=== PATIENT | female | born 1945 | race African-American/Black ===

== ENCOUNTER 2019-09-03 11:57 | Inpatient (IN) | payer MEDICARE, MEDICAID ==
[~2019-09-03] VITALS: Ht 177.8 cm; Wt 137.4 kg
[2019-09-03] MEDS ORDERED: MAGNESIUM 2 G PREMIX 50 ML IV STA (12:14)
[2019-09-03] MEDS ORDERED: IPRATROPIUM BROMIDE (0.02%) 0.5MG/2.5ML NEB HHN STA (12:14)
[2019-09-03] MEDS ORDERED: ALBUTEROL (0.083%) 2.5MG/3ML NEB HHN STA (12:14)
[2019-09-03] MEDS ORDERED: METHYLPREDNISOLONE SOD SUCC 125 MG/2 ML VIAL IV STA (12:14)
[2019-09-03 12:37] LABS: BASOPHILS % 0.8 % (0.0-2.0); EOSINOPHILS % 0.2 % (0.0-5.0); HEMATOCRIT. 27.2 % (36.0-48.0); HEMOGLOBIN. 8.2 g/dL (12.0-16.0); LYMPHOCYTES % 24.9 % (20.0-50.0); MEAN CORPUSCULAR HEMOGLOBIN 20.8 pg (28.0-32.0); MEAN CORPUSCULAR VOLUME 68.8 fL (81.0-99.0); MONOCYTES % 12.3 % (2.0-8.0); NEUTROPHILS % 61.8 % (40.0-76.0); RED BLOOD CELL COUNT 3.95 mill/uL (4.2-5.4); RED CELL DISTRIBUTION WIDTH 29.9 % (11.6-14.6)
[2019-09-03 12:43] LABS: CHLORIDE 108 mEq/L (98-107)
[2019-09-03] MEDS ORDERED: PIPERACILLIN/TAZ 3.375G PREMIX 50 ML IV ONE (12:45)
[2019-09-03] MEDS ORDERED: LEVOFLOXACIN 500MG PREMIX 100 ML IV ONE (12:45)
[2019-09-03 12:52] LABS: INR 3.2; PROTHROMBIN TIME 30.8 sec (9.6-11.0)
[2019-09-03 13:01] LABS: PLATELET ESTIMATE DECREASED
[2019-09-03 13:02] LABS: MEAN PLATELET VOLUME 9.9 fl (7.4-10.4); PLATELET 74 x1000/uL (130-400)
[2019-09-03 13:24] LABS: CLARITY URINE CLOUDY (CLEAR); COLOR URINE ORANGE (YELLOW); KETONES URINE NEGATIVE (NEGATIVE); LEUKOCYTE ESTERASE URINE 1+ (NEGATIVE); NITRITE URINE POSITIVE (NEGATIVE); OCCULT BLOOD URINE 1+ (NEGATIVE); PROTEIN URINE 2+ (NEGATIVE); SPECIFIC GRAVITY URINE 1.028 (1.005-1.030)
[2019-09-03 13:28] LABS: BG BASE EXCESS -5.3 mmol/L (-2.0-2.0); BG BILEVEL POS AIRWAY PRESSURE 15/5; BG CARBOXYHEMOGLOBIN 1.1 % (0.5-1.5); BG DEOXYHEMOGLOBIN 0.5 % (0.0-5.0); BG FRACTION INSPIRED OXYGEN 50; BG HCO3 ACT 19.7 mmol/L (22.0-26.0); BG METHEMOGLOBIN 0.3 % (0.0-1.5); BG OXYGEN SATURATION 99.5 % (92.0-98.5); BG OXYHEMOGLOBIN 98.1 % (94.0-97.0); BG PCO2 36.3 mmHg (35.0-45.0); BG PH 7.353 (7.350-7.450); BG PO2 176.8 mmHg (75.0-100.0); BG SAMPLE SITE RIGHT RADIAL; BG TOTAL HEMOGLOBIN 8.3 g/dL (12.0-18.0); BG VENT MODE MASK - BIPAP; BG VENT RATE 14 set
[2019-09-03] MEDS ORDERED: FUROSEMIDE 20MG/2ML VIAL IVP ONE (13:45)
[2019-09-03] MEDS ORDERED: SODIUM CHLORIDE 0.9% 1,000 ML IV SCH (13:48)
[2019-09-03] MEDS ORDERED: PIPERACILLIN/TAZ 3.375G PREMIX 50 ML IV NR ×2 (19:57→21:56)
[2019-09-03] MEDS ORDERED: VANCOMYCIN 1500MG in DEXTROSE 5% WATER 250ML IV NR (19:59)
[2019-09-03] MEDS ORDERED: HEPARIN 5000 UNITS/ML VIAL SUBCUT SCH (21:00)
[2019-09-03] MEDS: ACETAMINOPHEN 325MG TABLET PO PRN (22:52)
[2019-09-03] MEDS ORDERED: ATORVASTATIN CALCIUM 40MG TABLET PO NR (23:30)
[2019-09-04] VITALS (9 sets, daily range): BP systolic 98–135; BP diastolic 54–75
[2019-09-04] MEDS ORDERED: PIPERACILLIN/TAZOBACTAM 3.375 G in DEXTROSE 5% WATER 50 ML IV SCH ×2
[2019-09-04] MEDS: PIPERACILLIN/TAZOBACTAM 3.375 G in DEXTROSE 5% WATER 50 ML IV SCH ×4 (01:13→17:59)
[2019-09-04 06:20] LABS: CHLORIDE 108 mEq/L (98-107)
[2019-09-04 06:26] LABS: BASOPHILS % 0.3 % (0.0-2.0); HEMATOCRIT. 24.2 % (36.0-48.0); HEMOGLOBIN. 7.3 g/dL (12.0-16.0); LYMPHOCYTES % 17.3 % (20.0-50.0); MEAN CORPUSCULAR HEMOGLOBIN 20.9 pg (28.0-32.0); MEAN CORPUSCULAR VOLUME 68.8 fL (81.0-99.0); MONOCYTES % 7.4 % (2.0-8.0); RED BLOOD CELL COUNT 3.52 mill/uL (4.2-5.4); RED CELL DISTRIBUTION WIDTH 30.3 % (11.6-14.6)
[2019-09-04] MEDS: ACETAMINOPHEN 325MG TABLET PO PRN (09:39)
[2019-09-04] MEDS: VANCOMYCIN 1250MG in DEXTROSE 5% WATER 250ML IV SCH (09:42)
[2019-09-04] MEDS ORDERED: VANCOMYCIN 1 G PREMIX 200 ML IV SCH (10:00)
[2019-09-04 10:06] LABS: MEAN PLATELET VOLUME 10.6 fl (7.4-10.4); PLATELET 67 x1000/uL (130-400)
[2019-09-04] MEDS: FUROSEMIDE 40MG/4ML VIAL IVP SCH (16:13)
[2019-09-04 17:04] LABS: TOTAL IRON BINDING CAPACITY 298 ug/dL (250-450)
[2019-09-04 17:30] LABS: FOLIC ACID (FOLATE) SERUM 5.6 ng/mL (>5.38)
[2019-09-05] VITALS (12 sets, daily range): BP systolic 93–122; BP diastolic 43–83
[2019-09-05] MEDS: VANCOMYCIN 1250MG in DEXTROSE 5% WATER 250ML IV SCH (04:00)
[2019-09-05] MEDS: PIPERACILLIN/TAZOBACTAM 3.375 G in DEXTROSE 5% WATER 50 ML IV SCH ×3 (05:43)
[2019-09-05 07:22] LABS: BASOPHILS % 0.1 % (0.0-2.0); HEMATOCRIT. 23.4 % (36.0-48.0); HEMOGLOBIN. 7.2 g/dL (12.0-16.0); MEAN CORPUSCULAR HEMOGLOBIN 21.1 pg (28.0-32.0); MEAN CORPUSCULAR VOLUME 68.3 fL (81.0-99.0); MEAN PLATELET VOLUME 10.6 fl (7.4-10.4); NEUTROPHILS % 71.9 % (40.0-76.0); PLATELET 55 x1000/uL (130-400); RED BLOOD CELL COUNT 3.43 mill/uL (4.2-5.4); RED CELL DISTRIBUTION WIDTH 30.2 % (11.6-14.6)
[2019-09-05 07:28] LABS: INR 2.8; PROTHROMBIN TIME 27.4 sec (9.6-11.0)
[2019-09-05 09:01] LABS: CHLORIDE 104 mEq/L (98-107)
[2019-09-05] MEDS: FUROSEMIDE 40MG/4ML VIAL IVP SCH (09:03)
[2019-09-05] MEDS: PIPERACILLIN/TAZOBACTAM 3.375 G in DEXT 5% WATER 100 ML IV SCH ×2 (12:46→17:39)
[2019-09-05 22:05] LABS: PLATELET ESTIMATE DECREASED
[2019-09-06] VITALS (12 sets, daily range): BP systolic 105–118; BP diastolic 50–78
[2019-09-06] MEDS: PIPERACILLIN/TAZOBACTAM 3.375 G in DEXT 5% WATER 100 ML IV SCH ×4 (00:50→17:43)
[2019-09-06] MEDS: ONDANSETRON HCL 4MG/2ML INJ IV PRN (06:12)
[2019-09-06 07:59] LABS: HEMATOCRIT. 23.3 % (36.0-48.0); HEMOGLOBIN. 7.1 g/dL (12.0-16.0); MEAN CORPUSCULAR HEMOGLOBIN 20.7 pg (28.0-32.0); MEAN CORPUSCULAR VOLUME 68.2 fL (81.0-99.0); MEAN PLATELET VOLUME 9.6 fl (7.4-10.4); RED BLOOD CELL COUNT 3.42 mill/uL (4.2-5.4); RED CELL DISTRIBUTION WIDTH 29.8 % (11.6-14.6)
[2019-09-06] MEDS: FUROSEMIDE 40MG/4ML VIAL IVP SCH (09:49)
[2019-09-06] MEDS: FERROUS SULFATE 325MG TABLET PO SCH ×2 (13:00→17:43)
[2019-09-06 19:28] LABS: PLATELET ESTIMATE MARKEDLY DECREASED
[2019-09-06 19:29] LABS: PLATELET 43 x1000/uL (130-400)
[2019-09-06] MEDS: CARVEDILOL 3.125 MG TABLET PO SCH (20:33)
[2019-09-07] VITALS (12 sets, daily range): BP systolic 95–127; BP diastolic 48–66
[2019-09-07] MEDS: PIPERACILLIN/TAZOBACTAM 3.375 G in DEXT 5% WATER 100 ML IV SCH ×4 (00:45→18:04)
[2019-09-07] MEDS: ACETAMINOPHEN 325MG TABLET PO PRN ×2 (00:58→22:20)
[2019-09-07] MEDS: ONDANSETRON HCL 4MG/2ML INJ IV PRN ×2 (05:47→12:35)
[2019-09-07 08:01] LABS: BASOPHILS % 0.2 % (0.0-2.0); EOSINOPHILS % 2.9 % (0.0-5.0); HEMATOCRIT. 23.3 % (36.0-48.0); LYMPHOCYTES % 30.6 % (20.0-50.0); MEAN CORPUSCULAR VOLUME 69.6 fL (81.0-99.0); MEAN PLATELET VOLUME 9.7 fl (7.4-10.4); MONOCYTES % 19.8 % (2.0-8.0); NEUTROPHILS % 46.5 % (40.0-76.0); RED BLOOD CELL COUNT 3.35 mill/uL (4.2-5.4); RED CELL DISTRIBUTION WIDTH 29.7 % (11.6-14.6)
[2019-09-07 08:12] LABS: INR 2.4; PROTHROMBIN TIME 23.4 sec (9.6-11.0)
[2019-09-07] MEDS: FUROSEMIDE 40MG/4ML VIAL IVP SCH (08:21)
[2019-09-07] MEDS: CARVEDILOL 3.125 MG TABLET PO SCH ×2 (08:21→20:36)
[2019-09-07] MEDS: FERROUS SULFATE 325MG TABLET PO SCH ×3 (08:21→18:04)
[2019-09-07 08:29] LABS: PLATELET 36 x1000/uL (130-400)
[2019-09-07] MEDS ORDERED: SENNOSIDES 8.6MG TABLET PO PRN (17:45)
[2019-09-07] MEDS ORDERED: MAGNESIUM HYDROXIDE 400MG/5ML 30ML UDC PO PRN (17:45)
[2019-09-08] VITALS (17 sets, daily range): BP systolic 86–132; BP diastolic 48–67
[2019-09-08] MEDS: PIPERACILLIN/TAZOBACTAM 3.375 G in DEXT 5% WATER 100 ML IV SCH ×4 (00:40→20:58)
[2019-09-08 06:08] LABS: MEAN CORPUSCULAR VOLUME 68.4 fL (81.0-99.0); MEAN PLATELET VOLUME 10.3 fl (7.4-10.4); RED BLOOD CELL COUNT 3.21 mill/uL (4.2-5.4); RED CELL DISTRIBUTION WIDTH 29.3 % (11.6-14.6)
[2019-09-08 06:44] LABS: CHLORIDE 103 mEq/L (98-107)
[2019-09-08 07:25] LABS: INR 2.4; PROTHROMBIN TIME 23.2 sec (9.6-11.0)
[2019-09-08 07:33] LABS: HEMOGLOBIN. 6.8 g/dL (12.0-16.0); PLATELET 38 x1000/uL (130-400)
[2019-09-08] MEDS: FERROUS SULFATE 325MG TABLET PO SCH ×3 (08:29→19:01)
[2019-09-08] MEDS: FUROSEMIDE 40MG/4ML VIAL IVP SCH (08:29)
[2019-09-08] MEDS: CARVEDILOL 3.125 MG TABLET PO SCH ×2 (08:30→21:08)
[2019-09-08 09:32] LABS: PLATELET ESTIMATE MARKEDLY DECREASED
[2019-09-08] MEDS ORDERED: FUROSEMIDE 20MG/2ML VIAL IVP NR (11:15)
[2019-09-08 13:55] LABS: HAPTOGLOBIN <31.0 mg/dL (30-200)
[2019-09-08 16:39] LABS: CREATINE KINASE 38 IU/L (26-192)
[2019-09-08] MEDS: DOCUSATE SODIUM 250MG CAPSULE PO SCH (21:08)
[2019-09-09] VITALS (13 sets, daily range): BP systolic 95–130; BP diastolic 44–80
[2019-09-09 00:17] LABS: HEMATOCRIT 26.8 % (36.0-48.0); HEMOGLOBIN 8.1 g/dL (12.0-16.0)
[2019-09-09] MEDS: PIPERACILLIN/TAZOBACTAM 3.375 G in DEXT 5% WATER 100 ML IV SCH ×2 (00:26→05:38)
[2019-09-09 06:52] LABS: INR 2.2; PROTHROMBIN TIME 21.6 sec (9.6-11.0)
[2019-09-09] MEDS: ACETAMINOPHEN 325MG TABLET PO PRN (07:02)
[2019-09-09 07:41] LABS: CHLORIDE 103 mEq/L (98-107)
[2019-09-09] MEDS: FERROUS SULFATE 325MG TABLET PO SCH ×3 (08:00→17:07)
[2019-09-09 08:13] LABS: HEMATOCRIT. 27.8 % (36.0-48.0); HEMOGLOBIN. 8.3 g/dL (12.0-16.0); MEAN CORPUSCULAR HEMOGLOBIN 21.5 pg (28.0-32.0); MEAN PLATELET VOLUME 10.2 fl (7.4-10.4); RED BLOOD CELL COUNT 3.86 mill/uL (4.2-5.4); RED CELL DISTRIBUTION WIDTH 28.6 % (11.6-14.6)
[2019-09-09] MEDS: FUROSEMIDE 40MG/4ML VIAL IVP SCH (08:22)
[2019-09-09] MEDS: CARVEDILOL 3.125 MG TABLET PO SCH (08:24)
[2019-09-09] MEDS: DOCUSATE SODIUM 250MG CAPSULE PO SCH (08:24)
[2019-09-09 08:39] LABS: PLATELET 47 x1000/uL (130-400)
[2019-09-09] MEDS ORDERED: POTASSIUM CHLORIDE 20MEQ TABLET SR PO SCH (12:45)
[2019-09-09 13:31] LABS: PLATELET ESTIMATE MARKEDLY DECREASED
[2019-09-09] MEDS ORDERED: FUROSEMIDE 40MG TABLET PO SCH (21:00)
[2019-09-10] MEDS ORDERED: FUROSEMIDE 40MG/4ML VIAL IVP SCH (09:00)
[2019-09-10 10:10] LABS: IMMUNOGLOBULIN A 630 mg/dL (64-422); IMMUNOGLOBULIN G 3951 mg/dL (700-1600); IMMUNOGLOBULIN M 91 mg/dL (26-217)
[2019-09-12 13:06] LABS: ANA IFA Negative (.)
== END 2019-09-09 22:50 | DRG 871 ==
LOC: ER 11:57 → 5EST 13:04 → EDBEDREQTM 13:09 → EDBEDREQ 13:09 → ENRESERV 20:20
PROVIDERS: ADMIT Internal Medicine; ATTEND Internal Medicine
PROC: 5A09357 Assistance with Respiratory Ventilation, Less than 24 Consecutive Hours, Continuous Positive Airway Pressure (ICD-10-PCS; principal; 2019-09-03)
PROC: 30233N1 Transfusion of Nonautologous Red Blood Cells into Peripheral Vein, Percutaneous Approach (ICD-10-PCS; 2019-09-08)
DX: A41.9 Sepsis, unspecified organism (principal); J96.01 Acute respiratory failure with hypoxia; I50.43 Acute on chronic combined systolic (congestive) and diastolic (congestive) heart failure; J18.9 Pneumonia, unspecified organism; R65.21 Severe sepsis with septic shock; I21.4 Non-ST elevation (NSTEMI) myocardial infarction; D65 Disseminated intravascular coagulation [defibrination syndrome]; D61.818 Other pancytopenia; E87.2 Acidosis; G82.20 Paraplegia, unspecified; I42.9 Cardiomyopathy, unspecified; Z68.41 Body mass index [BMI] 40.0-44.9, adult; N17.9 Acute kidney failure, unspecified; G47.33 Obstructive sleep apnea (adult) (pediatric); R79.1 Abnormal coagulation profile; D50.9 Iron deficiency anemia, unspecified; E03.9 Hypothyroidism, unspecified; E66.01 Morbid (severe) obesity due to excess calories; I11.0 Hypertensive heart disease with heart failure; I27.20 Pulmonary hypertension, unspecified; I34.0 Nonrheumatic mitral (valve) insufficiency; Z60.2 Problems related to living alone; K59.00 Constipation, unspecified; S51.012A Laceration without foreign body of left elbow, initial encounter; S51.011A Laceration without foreign body of right elbow, initial encounter; K80.20 Calculus of gallbladder without cholecystitis without obstruction; W18.39XA Other fall on same level, initial encounter; I25.2 Old myocardial infarction; Z79.01 Long term (current) use of anticoagulants; Z79.899 Other long term (current) drug therapy; Z90.710 Acquired absence of both cervix and uterus; Z87.891 Personal history of nicotine dependence; Y93.89 Activity, other specified; Y92.89 Other specified places as the place of occurrence of the external cause; Y99.8 Other external cause status
CPT/HCPCS: 36415; 36600; 71045; 76700; 80048; 80053; 80202; 81003; 82270; 82375; 82550; 82607; 82728; 82746; 82784; 82805; 83010; 83540; 83550; 83605; 83615; 83735; 83880; 84134; 84145; 84484; 85014; 85018; 85025; 85044; 86256; 86334; 86803; 86850; 86880; 86900; 86920; 93005; 93306; 93970; 94644; 94660; 96365; 96375; 97110; 97161; 97166; 99291; A6261; J1940; J1956; J2405; J2543; J2930; J3370; J3475; J7060; J7611; P9016

== ENCOUNTER 2019-09-09 23:10 | Inpatient (IN) | payer MEDICARE, MEDICAID ==
[~2019-09-09] VITALS: Ht 177.8 cm; Wt 137.4 kg
[2019-09-09 23:10] VITALS: BP 96/49
[2019-09-10] MEDS ORDERED: MAGNESIUM HYDROXIDE 400MG/5ML 30ML UDC PO PRN (00:30)
[2019-09-10] MEDS: ACETAMINOPHEN 325MG TABLET PO PRN ×2 (01:02→23:54)
[2019-09-10 07:56] VITALS: BP 104/46
[2019-09-10] MEDS: CARVEDILOL 3.125 MG TABLET PO SCH ×2 (09:00→21:45)
[2019-09-10] MEDS: FUROSEMIDE 40MG/4ML VIAL IVP SCH (09:05)
[2019-09-10] MEDS: DOCUSATE SODIUM 250MG CAPSULE PO SCH (09:05)
[2019-09-10] MEDS: POTASSIUM CHLORIDE 20MEQ TABLET SR PO SCH (09:05)
[2019-09-10] MEDS: FERROUS SULFATE 325MG TABLET PO SCH ×3 (09:05→17:15)
[2019-09-10 16:14] VITALS: BP 93/51
[2019-09-10 20:00] VITALS: BP 102/41
[2019-09-10 22:30] VITALS: BP 113/66
[2019-09-11 07:32] LABS: INR 2.1; PROTHROMBIN TIME 20.4 sec (9.6-11.0)
[2019-09-11 07:43] LABS: HEMATOCRIT. 27.7 % (36.0-48.0); HEMOGLOBIN. 8.2 g/dL (12.0-16.0); MEAN CORPUSCULAR HEMOGLOBIN 21.8 pg (28.0-32.0); MEAN CORPUSCULAR VOLUME 73.6 fL (81.0-99.0); MEAN PLATELET VOLUME 9.4 fl (7.4-10.4); RED BLOOD CELL COUNT 3.76 mill/uL (4.2-5.4); RED CELL DISTRIBUTION WIDTH 28.4 % (11.6-14.6)
[2019-09-11 07:55] LABS: PLATELET 46 x1000/uL (130-400)
[2019-09-11 07:58] VITALS: BP 108/46
[2019-09-11 08:28] LABS: CHLORIDE 103 mEq/L (98-107)
[2019-09-11] MEDS: POTASSIUM CHLORIDE 20MEQ TABLET SR PO SCH (08:34)
[2019-09-11] MEDS: DOCUSATE SODIUM 250MG CAPSULE PO SCH (08:34)
[2019-09-11] MEDS: FUROSEMIDE 40MG/4ML VIAL IVP SCH ×2 (08:34→16:16)
[2019-09-11] MEDS: FERROUS SULFATE 325MG TABLET PO SCH ×3 (08:34→16:16)
[2019-09-11] MEDS: CARVEDILOL 3.125 MG TABLET PO SCH ×2 (08:35→21:18)
[2019-09-11 09:52] LABS: PLATELET ESTIMATE MARKEDLY DECREASED
[2019-09-11] MEDS: SENNOSIDES 8.6MG TABLET PO PRN (11:25)
[2019-09-11 20:00] VITALS: BP 125/84
[2019-09-11 20:56] LABS: CLARITY URINE CLOUDY (CLEAR); COLOR URINE DARK YELLOW (YELLOW); KETONES URINE NEGATIVE (NEGATIVE); LEUKOCYTE ESTERASE URINE 3+ (NEGATIVE); NITRITE URINE NEGATIVE (NEGATIVE); OCCULT BLOOD URINE 1+ (NEGATIVE); PROTEIN URINE NEGATIVE (NEGATIVE); SPECIFIC GRAVITY URINE 1.011 (1.005-1.030)
[2019-09-12] MEDS: ACETAMINOPHEN 325MG TABLET PO PRN (00:59)
[2019-09-12 06:48] LABS: BASOPHILS % 0.8 % (0.0-2.0); EOSINOPHILS % 1.7 % (0.0-5.0); HEMATOCRIT. 25.9 % (36.0-48.0); HEMOGLOBIN. 7.9 g/dL (12.0-16.0); LYMPHOCYTES % 25.6 % (20.0-50.0); MEAN CORPUSCULAR HEMOGLOBIN 22.3 pg (28.0-32.0); MEAN CORPUSCULAR VOLUME 73.3 fL (81.0-99.0); MEAN PLATELET VOLUME 9.9 fl (7.4-10.4); MONOCYTES % 13.9 % (2.0-8.0); RED BLOOD CELL COUNT 3.54 mill/uL (4.2-5.4); RED CELL DISTRIBUTION WIDTH 28.3 % (11.6-14.6)
[2019-09-12] MEDS: FUROSEMIDE 40MG/4ML VIAL IVP SCH ×2 (06:53→16:56)
[2019-09-12 07:39] LABS: PLATELET 41 x1000/uL (130-400)
[2019-09-12 07:45] LABS: CHLORIDE 104 mEq/L (98-107)
[2019-09-12 07:52] LABS: PHOSPHORUS 2.3 mg/dL (2.5-4.9)
[2019-09-12 08:26] VITALS: BP 144/76
[2019-09-12] MEDS: FERROUS SULFATE 325MG TABLET PO SCH ×3 (09:16→16:56)
[2019-09-12] MEDS: POTASSIUM CHLORIDE 20MEQ TABLET SR PO SCH (09:16)
[2019-09-12] MEDS: CARVEDILOL 3.125 MG TABLET PO SCH ×2 (09:17→20:58)
[2019-09-12] MEDS: DOCUSATE SODIUM 250MG CAPSULE PO SCH (09:17)
[2019-09-12] MEDS ORDERED: POTASSIUM CHLORIDE 20MEQ/PACKET PO NR (13:15)
[2019-09-12] MEDS ORDERED: POTASSIUM-SODIUM PHOSPHATE POWDER PACKET PO NR (14:45)
[2019-09-12 20:00] VITALS: BP 102/49
[2019-09-12] MEDS: FLUTICASONE PROPIONATE 50MCG/SPRAY BOTTLE BOTHNSTRLS SCH (20:58)
[2019-09-13] MEDS: FUROSEMIDE 40MG/4ML VIAL IVP SCH ×2 (06:22→16:35)
[2019-09-13 07:35] LABS: BASOPHILS % 1.1 % (0.0-2.0); EOSINOPHILS % 1.9 % (0.0-5.0); HEMATOCRIT. 27.7 % (36.0-48.0); HEMOGLOBIN. 8.3 g/dL (12.0-16.0); LYMPHOCYTES % 23.4 % (20.0-50.0); MEAN CORPUSCULAR HEMOGLOBIN 22.6 pg (28.0-32.0); MEAN CORPUSCULAR VOLUME 75.1 fL (81.0-99.0); MEAN PLATELET VOLUME 10.7 fl (7.4-10.4); MONOCYTES % 12.4 % (2.0-8.0); NEUTROPHILS % 61.2 % (40.0-76.0); RED BLOOD CELL COUNT 3.69 mill/uL (4.2-5.4); RED CELL DISTRIBUTION WIDTH 28.7 % (11.6-14.6)
[2019-09-13 07:37] LABS: PROTHROMBIN TIME 19.7 sec (9.6-11.0)
[2019-09-13 07:50] VITALS: BP 106/41
[2019-09-13 08:02] LABS: CHLORIDE 104 mEq/L (98-107)
[2019-09-13 08:14] LABS: PLATELET 41 x1000/uL (130-400)
[2019-09-13] MEDS: FLUTICASONE PROPIONATE 50MCG/SPRAY BOTTLE BOTHNSTRLS SCH ×2 (08:40→20:36)
[2019-09-13] MEDS: FERROUS SULFATE 325MG TABLET PO SCH ×3 (08:40→16:35)
[2019-09-13] MEDS: DOCUSATE SODIUM 250MG CAPSULE PO SCH (08:40)
[2019-09-13] MEDS: POTASSIUM CHLORIDE 20MEQ TABLET SR PO SCH (08:40)
[2019-09-13] MEDS: CARVEDILOL 3.125 MG TABLET PO SCH ×2 (08:41→20:36)
[2019-09-13] MEDS: FLUCONAZOLE 100MG TABLET PO SCH (12:27)
[2019-09-13 20:00] VITALS: BP 101/68
[2019-09-13] MEDS: SENNOSIDES 8.6MG TABLET PO PRN (20:36)
[2019-09-14] MEDS: ACETAMINOPHEN 325MG TABLET PO PRN (02:42)
[2019-09-14] MEDS: FUROSEMIDE 40MG/4ML VIAL IVP SCH ×2 (06:32→16:25)
[2019-09-14 08:03] VITALS: BP 115/44
[2019-09-14] MEDS: POTASSIUM CHLORIDE 20MEQ TABLET SR PO SCH (08:44)
[2019-09-14] MEDS: DOCUSATE SODIUM 250MG CAPSULE PO SCH (08:44)
[2019-09-14] MEDS: CARVEDILOL 3.125 MG TABLET PO SCH ×2 (08:44→21:00)
[2019-09-14] MEDS: FLUCONAZOLE 100MG TABLET PO SCH (08:44)
[2019-09-14] MEDS: FERROUS SULFATE 325MG TABLET PO SCH ×3 (08:44→16:25)
[2019-09-14] MEDS: FLUTICASONE PROPIONATE 50MCG/SPRAY BOTTLE BOTHNSTRLS SCH ×2 (08:47→21:00)
[2019-09-14] MEDS ORDERED: GUAIFENESIN-DM 200MG-20MG/10ML UDC PO PRN (14:00)
[2019-09-14 20:00] VITALS: BP 105/50
[2019-09-14] MEDS: SENNOSIDES 8.6MG TABLET PO PRN (21:19)
[2019-09-15 06:10] VITALS: BP 113/63
[2019-09-15] MEDS: FUROSEMIDE 40MG/4ML VIAL IVP SCH ×2 (06:17→16:48)
[2019-09-15 07:48] LABS: EOSINOPHILS % 2.3 % (0.0-5.0); HEMATOCRIT. 27.6 % (36.0-48.0); HEMOGLOBIN. 8.3 g/dL (12.0-16.0); LYMPHOCYTES % 28.5 % (20.0-50.0); MEAN CORPUSCULAR HEMOGLOBIN 22.9 pg (28.0-32.0); MEAN CORPUSCULAR VOLUME 75.9 fL (81.0-99.0); MEAN PLATELET VOLUME 10.6 fl (7.4-10.4); MONOCYTES % 12.8 % (2.0-8.0); NEUTROPHILS % 55.4 % (40.0-76.0); RED BLOOD CELL COUNT 3.64 mill/uL (4.2-5.4); RED CELL DISTRIBUTION WIDTH 28.7 % (11.6-14.6)
[2019-09-15 07:52] LABS: PLATELET 36 x1000/uL (130-400)
[2019-09-15 07:53] LABS: CHLORIDE 107 mEq/L (98-107)
[2019-09-15 07:59] LABS: PHOSPHORUS 2.8 mg/dL (2.5-4.9)
[2019-09-15] MEDS: CARVEDILOL 3.125 MG TABLET PO SCH ×2 (09:00→20:53)
[2019-09-15] MEDS: FLUTICASONE PROPIONATE 50MCG/SPRAY BOTTLE BOTHNSTRLS SCH ×2 (09:39→21:00)
[2019-09-15] MEDS: FERROUS SULFATE 325MG TABLET PO SCH ×3 (09:40→16:48)
[2019-09-15] MEDS: POTASSIUM CHLORIDE 20MEQ TABLET SR PO SCH (09:40)
[2019-09-15] MEDS: DOCUSATE SODIUM 250MG CAPSULE PO SCH (09:40)
[2019-09-15] MEDS: FLUCONAZOLE 100MG TABLET PO SCH (09:40)
[2019-09-15 13:06] LABS: IMMUNOGLOBULIN A 557 mg/dL (64-422); IMMUNOGLOBULIN G 3239 mg/dL (700-1600); IMMUNOGLOBULIN M 80 mg/dL (26-217)
[2019-09-15] MEDS: THROAT LOZENGES-BENZOCAINE/MENTH/CETYLPYRD CL LOZENGES MM PRN (16:52)
[2019-09-15 17:14] LABS: INR 1.9; PROTHROMBIN TIME 19.5 sec (9.6-11.0)
[2019-09-15 20:00] VITALS: BP 123/68
[2019-09-15] MEDS: ACETAMINOPHEN 325MG TABLET PO PRN (20:55)
[2019-09-16] MEDS: THROAT LOZENGES-BENZOCAINE/MENTH/CETYLPYRD CL LOZENGES MM PRN (04:36)
[2019-09-16] MEDS: FUROSEMIDE 40MG/4ML VIAL IVP SCH ×2 (07:20→16:52)
[2019-09-16 08:03] VITALS: BP 101/56
[2019-09-16] MEDS: CARVEDILOL 3.125 MG TABLET PO SCH ×2 (09:00→21:00)
[2019-09-16] MEDS: POTASSIUM CHLORIDE 20MEQ TABLET SR PO SCH (10:04)
[2019-09-16] MEDS: FLUCONAZOLE 100MG TABLET PO SCH (10:04)
[2019-09-16] MEDS: FERROUS SULFATE 325MG TABLET PO SCH ×3 (10:06→16:52)
[2019-09-16] MEDS: DOCUSATE SODIUM 250MG CAPSULE PO SCH (10:06)
[2019-09-16 15:06] LABS: ANTI-NUCLEAR ANTIBODIES DIRECT Negative (Negative)
[2019-09-16] MEDS: ACETAMINOPHEN 325MG TABLET PO PRN (16:52)
[2019-09-16 20:00] VITALS: BP 105/53
[2019-09-17] MEDS: FUROSEMIDE 40MG/4ML VIAL IVP SCH ×2 (06:11→16:51)
[2019-09-17 07:51] VITALS: BP 166/49
[2019-09-17] MEDS: CARVEDILOL 3.125 MG TABLET PO SCH ×2 (08:11→21:00)
[2019-09-17] MEDS: POTASSIUM CHLORIDE 20MEQ TABLET SR PO SCH (08:12)
[2019-09-17] MEDS: FLUCONAZOLE 100MG TABLET PO SCH (08:12)
[2019-09-17] MEDS: DOCUSATE SODIUM 250MG CAPSULE PO SCH (08:12)
[2019-09-17] MEDS: FERROUS SULFATE 325MG TABLET PO SCH ×3 (08:12→16:51)
[2019-09-17 12:58] LABS: HEMATOCRIT 31.1 % (36.0-48.0); HEMOGLOBIN 9.3 g/dL (12.0-16.0); MEAN CORPUSCULAR HEMOGLOBIN 23.2 pg (28.0-32.0); MEAN CORPUSCULAR VOLUME 77.5 fL (81.0-99.0); RED BLOOD CELL COUNT 4.01 mill/uL (4.2-5.4); RED CELL DISTRIBUTION WIDTH 31.3 % (11.6-14.6)
[2019-09-17 12:59] LABS: CHLORIDE 105 mEq/L (98-107)
[2019-09-17 13:02] LABS: INR 1.8; PROTHROMBIN TIME 17.9 sec (9.6-11.0)
[2019-09-17 13:51] LABS: PLATELET 50 x1000/uL (130-400)
[2019-09-17 14:13] VITALS: BP 108/52
[2019-09-17 20:00] VITALS: BP 102/50
[2019-09-17] MEDS: ACETAMINOPHEN 325MG TABLET PO PRN (21:35)
[2019-09-18 04:08] LABS: 25-HYDROXY VITAMIN D3 4.5 ng/mL (.)
[2019-09-18] MEDS: FUROSEMIDE 40MG/4ML VIAL IVP SCH ×2 (06:28→17:34)
[2019-09-18 07:43] LABS: T4 FREE 1.28 ng/dL (0.76-1.46)
[2019-09-18 08:00] VITALS: BP 100/47
[2019-09-18] MEDS: POTASSIUM CHLORIDE 20MEQ TABLET SR PO SCH (08:42)
[2019-09-18] MEDS: FLUCONAZOLE 100MG TABLET PO SCH (08:42)
[2019-09-18] MEDS: FERROUS SULFATE 325MG TABLET PO SCH ×3 (08:42→17:35)
[2019-09-18] MEDS: CARVEDILOL 3.125 MG TABLET PO SCH ×2 (08:42→21:00)
[2019-09-18] MEDS: DOCUSATE SODIUM 250MG CAPSULE PO SCH (08:42)
[2019-09-18] MEDS ORDERED: NON FORMULARY PATIENT HOME MED XX SCH (13:45)
[2019-09-18] MEDS ORDERED: LIDOCAINE 5% PATCH TOP SCH (14:00)
[2019-09-18 14:49] VITALS: BP 104/43
[2019-09-18] MEDS: ACETAMINOPHEN 325MG TABLET PO PRN (14:54)
[2019-09-18 20:00] VITALS: BP 112/57
[2019-09-19] MEDS: ONDANSETRON HCL 4MG TABLET PO PRN ×2 (03:24→13:42)
[2019-09-19] MEDS: FUROSEMIDE 40MG/4ML VIAL IVP SCH ×2 (06:26→17:29)
[2019-09-19 07:28] LABS: BASOPHILS % 1.8 % (0.0-2.0); EOSINOPHILS % 3.3 % (0.0-5.0); HEMATOCRIT. 25.7 % (36.0-48.0); LYMPHOCYTES % 39.3 % (20.0-50.0); MEAN CORPUSCULAR HEMOGLOBIN 24.3 pg (28.0-32.0); MEAN CORPUSCULAR VOLUME 77.9 fL (81.0-99.0); MEAN PLATELET VOLUME 9.8 fl (7.4-10.4); MONOCYTES % 14.6 % (2.0-8.0); RED CELL DISTRIBUTION WIDTH 35.2 % (11.6-14.6)
[2019-09-19 08:00] VITALS: BP 100/47
[2019-09-19] MEDS: CARVEDILOL 3.125 MG TABLET PO SCH ×2 (09:00→21:00)
[2019-09-19] MEDS ORDERED: LIDOCAINE 5% PATCH TOP SCH (09:00)
[2019-09-19] MEDS: DOCUSATE SODIUM 250MG CAPSULE PO SCH (09:50)
[2019-09-19] MEDS: FLUCONAZOLE 100MG TABLET PO SCH (09:51)
[2019-09-19] MEDS: POTASSIUM CHLORIDE 20MEQ TABLET SR PO SCH (09:53)
[2019-09-19] MEDS: FERROUS SULFATE 325MG TABLET PO SCH ×3 (09:53→17:29)
[2019-09-19 12:10] LABS: PLATELET 42 x1000/uL (130-400)
[2019-09-19] MEDS: ERGOCALCIFEROL 50000UNITS CAPSULE PO SCH (15:25)
[2019-09-19] MEDS: ACETAMINOPHEN 325MG TABLET PO PRN (15:27)
[2019-09-19] MEDS ORDERED: PHYTONADIONE 10 MG/10 ML ORALSYR PO SCH (16:00)
[2019-09-19] MEDS: LIDOCAINE 5% PATCH TOP SCH (16:04)
[2019-09-19 18:12] LABS: VITAMIN B12 SERUM 1290 pg/mL (211-911)
[2019-09-19 20:00] VITALS: BP 103/50
[2019-09-20] MEDS: ACETAMINOPHEN 325MG TABLET PO PRN ×2 (01:10→22:13)
[2019-09-20] MEDS: FUROSEMIDE 40MG/4ML VIAL IVP SCH ×2 (06:55→17:47)
[2019-09-20 08:00] VITALS: BP 115/56
[2019-09-20] MEDS: METOLAZONE 2.5MG TABLET PO SCH (09:03)
[2019-09-20] MEDS: DOCUSATE SODIUM 250MG CAPSULE PO SCH (09:03)
[2019-09-20] MEDS: FLUCONAZOLE 100MG TABLET PO SCH (09:04)
[2019-09-20] MEDS: CARVEDILOL 3.125 MG TABLET PO SCH ×2 (09:04→20:46)
[2019-09-20] MEDS: FERROUS SULFATE 325MG TABLET PO SCH ×3 (09:04→17:47)
[2019-09-20] MEDS: LIDOCAINE 5% PATCH TOP SCH (09:05)
[2019-09-20] MEDS: POTASSIUM CHLORIDE 20MEQ TABLET SR PO SCH (09:05)
[2019-09-20 20:44] VITALS: BP 106/55
[2019-09-21] MEDS: FUROSEMIDE 40MG/4ML VIAL IVP SCH ×2 (06:16→16:43)
[2019-09-21 07:57] VITALS: BP 101/47
[2019-09-21] MEDS: FERROUS SULFATE 325MG TABLET PO SCH ×3 (08:29→16:43)
[2019-09-21] MEDS: DOCUSATE SODIUM 250MG CAPSULE PO SCH (08:29)
[2019-09-21] MEDS: CARVEDILOL 3.125 MG TABLET PO SCH ×2 (08:29→20:29)
[2019-09-21] MEDS: POTASSIUM CHLORIDE 20MEQ TABLET SR PO SCH (08:29)
[2019-09-21] MEDS: LIDOCAINE 5% PATCH TOP SCH (08:29)
[2019-09-21] MEDS: METOLAZONE 2.5MG TABLET PO SCH (08:29)
[2019-09-21 16:50] VITALS: BP 108/46
[2019-09-21 20:00] VITALS: BP 109/57
[2019-09-21] MEDS: TRAMADOL 50MG TABLET PO PRN (21:29)
[2019-09-21] MEDS: ACETAMINOPHEN 325MG TABLET PO PRN (23:42)
[2019-09-22] MEDS: FUROSEMIDE 40MG/4ML VIAL IVP SCH (06:39)
[2019-09-22] MEDS: TRAMADOL 50MG TABLET PO PRN (07:02)
[2019-09-22 07:19] LABS: HEMATOCRIT. 26.6 % (36.0-48.0); HEMOGLOBIN. 8.3 g/dL (12.0-16.0); MEAN CORPUSCULAR VOLUME 80.1 fL (81.0-99.0); MEAN PLATELET VOLUME 10.6 fl (7.4-10.4); PLATELET 61 x1000/uL (130-400); RED BLOOD CELL COUNT 3.33 mill/uL (4.2-5.4); RED CELL DISTRIBUTION WIDTH 36.4 % (11.6-14.6)
[2019-09-22 07:45] VITALS: BP 101/47
[2019-09-22] MEDS: FERROUS SULFATE 325MG TABLET PO SCH ×2 (08:36→12:24)
[2019-09-22] MEDS: DOCUSATE SODIUM 250MG CAPSULE PO SCH (08:36)
[2019-09-22] MEDS: ERGOCALCIFEROL 50000UNITS CAPSULE PO SCH (08:36)
[2019-09-22] MEDS: CARVEDILOL 3.125 MG TABLET PO SCH (08:37)
[2019-09-22] MEDS: METOLAZONE 2.5MG TABLET PO SCH (08:44)
[2019-09-22] MEDS: POTASSIUM CHLORIDE 20MEQ TABLET SR PO SCH (08:44)
[2019-09-22] MEDS: LIDOCAINE 5% PATCH TOP SCH (08:47)
[2019-09-22] MEDS ORDERED: LIDO700A30 TOP (12:10)
[2019-09-22] MEDS ORDERED: MOM PO (12:10)
[2019-09-22] MEDS ORDERED: SENN-170 PO (12:10)
[2019-09-22] MEDS ORDERED: DOCU250C14 PO (12:10)
[2019-09-22] MEDS ORDERED: TOPUD PO (12:10)
[2019-09-22] MEDS ORDERED: COR3 PO (12:10)
[2019-09-22] MEDS ORDERED: POTA20TA82 PO (12:10)
[2019-09-22] MEDS ORDERED: FERR325T23 PO (12:10)
[2019-09-22] MEDS: ACETAMINOPHEN 325MG TABLET PO PRN ×2 (12:28→15:52)
[2019-09-22] MEDS ORDERED: FURO-151 MT (12:46)
[2019-09-22] MEDS ORDERED: METO2.5T14 PO (13:56)
[2019-09-22 14:40] LABS: CHLORIDE 101 mEq/L (98-107)
[2019-09-22] MEDS ORDERED: POTASSIUM CHLORIDE 20MEQ TABLET SR PO SCH (15:30)
[2019-09-22 15:48] VITALS: BP 112/62
[2019-09-22 15:50] VITALS: BP 18/112
[2019-09-22 18:45] LABS: PLATELET ESTIMATE DECREASED
[2019-09-25 07:48] LABS: BETA CAROTENE 4 ug/dL (3-91)
== END 2019-09-22 18:55 | disposition home or self-care (01) | DRG 280 ==
PROVIDERS: ADMIT Physical Medicine & Rehabilitation Spinal Cord Injury Medicine; ATTEND Internal Medicine
DX: I11.0 Hypertensive heart disease with heart failure (principal); J96.01 Acute respiratory failure with hypoxia; I21.4 Non-ST elevation (NSTEMI) myocardial infarction; A41.9 Sepsis, unspecified organism; J18.9 Pneumonia, unspecified organism; D61.818 Other pancytopenia; Z68.41 Body mass index [BMI] 40.0-44.9, adult; G82.20 Paraplegia, unspecified; N17.9 Acute kidney failure, unspecified; E66.01 Morbid (severe) obesity due to excess calories; F09 Unspecified mental disorder due to known physiological condition; F39 Unspecified mood [affective] disorder; G47.33 Obstructive sleep apnea (adult) (pediatric); I27.20 Pulmonary hypertension, unspecified; I34.0 Nonrheumatic mitral (valve) insufficiency; I42.9 Cardiomyopathy, unspecified; I50.23 Acute on chronic systolic (congestive) heart failure; K59.00 Constipation, unspecified; K80.20 Calculus of gallbladder without cholecystitis without obstruction; I25.2 Old myocardial infarction; Z79.899 Other long term (current) drug therapy; Z90.710 Acquired absence of both cervix and uterus
CPT/HCPCS: 36415; 72128; 72131; 76536; 80048; 80053; 81003; 82306; 82380; 82607; 82784; 83036; 83735; 84100; 84134; 84207; 84425; 84439; 84443; 84481; 85025; 85027; 86038; 86334; 86376; 87106; 93970; 97110; 97116; 97162; 97166; 97530; 97535; A6261; C1893; J1940; J3430; Q0162

== ENCOUNTER 2019-11-17 15:37 | Inpatient (IN) | payer MEDICARE, MEDICAID ==
[~2019-11-17] VITALS: Ht 172.7 cm; Wt 142.0 kg
[~2019-11-17 15:37] MED LIST: COR3 PO; DOCU250C14 PO; FERR325T23 PO; FURO-151 MT; LIDO700A30 TOP; METO2.5T14 PO; MOM PO; POTA20TA82 PO; SENN-170 PO; TOPUD PO
[2019-11-17 16:50] LABS: HEMATOCRIT. 38.1 % (36.0-48.0); HEMOGLOBIN. 12.5 g/dL (12.0-16.0); MEAN CORPUSCULAR HEMOGLOBIN 31.5 pg (28.0-32.0); MEAN CORPUSCULAR VOLUME 95.8 fL (81.0-99.0); MEAN PLATELET VOLUME 9.2 fl (7.4-10.4); PLATELET 75 x1000/uL (130-400); RED BLOOD CELL COUNT 3.97 mill/uL (4.2-5.4); RED CELL DISTRIBUTION WIDTH 21.3 % (11.6-14.6)
[2019-11-17 16:51] LABS: CHLORIDE 109 mEq/L (98-107)
[2019-11-17] MEDS ORDERED: FUROSEMIDE 40MG/4ML VIAL IVP ONE (17:15)
[2019-11-17 17:16] LABS: PLATELET ESTIMATE DECREASED
[2019-11-17] MEDS ORDERED: ONDANSETRON HCL 4MG/2ML INJ IV PRN (18:30)
[2019-11-17] MEDS ORDERED: HYDRALAZINE 20MG/ML VIAL IV PRN (18:30)
[2019-11-17] MEDS: ACETAMINOPHEN 325MG TABLET PO PRN (19:01)
[2019-11-17] MEDS ORDERED: HEPARIN 5000 UNITS/ML VIAL SUBCUT SCH (21:00)
[2019-11-17 22:00] VITALS: BP 147/78
[2019-11-18] VITALS: BP 143/79
[2019-11-18 04:00] VITALS: BP 103/47
[2019-11-18] MEDS: ACETAMINOPHEN 325MG TABLET PO PRN ×2 (04:55→17:33)
[2019-11-18 08:00] VITALS: BP 115/46
[2019-11-18 08:40] LABS: HEMATOCRIT. 35.7 % (36.0-48.0); HEMOGLOBIN. 11.9 g/dL (12.0-16.0); MEAN CORPUSCULAR HEMOGLOBIN 31.6 pg (28.0-32.0); MEAN CORPUSCULAR VOLUME 95.3 fL (81.0-99.0); MEAN PLATELET VOLUME 9.1 fl (7.4-10.4); PLATELET 70 x1000/uL (130-400); RED BLOOD CELL COUNT 3.75 mill/uL (4.2-5.4); RED CELL DISTRIBUTION WIDTH 20.4 % (11.6-14.6)
[2019-11-18 08:54] LABS: CHLORIDE 111 mEq/L (98-107)
[2019-11-18] MEDS: FUROSEMIDE 40MG/4ML VIAL IV SCH ×2 (09:24→17:31)
[2019-11-18] MEDS: METOLAZONE 2.5MG TABLET PO SCH (09:25)
[2019-11-18] MEDS ORDERED: DOCUSATE SODIUM 100MG CAPSULE PO PRN (11:45)
[2019-11-18] MEDS ORDERED: SENNOSIDES/DOCUSATE SOD 8.6/50MG TABLET PO PRN (11:45)
[2019-11-18] MEDS ORDERED: MAGNESIUM HYDROXIDE 400MG/5ML 30ML UDC PO PRN (11:45)
[2019-11-18 12:00] VITALS: BP 120/57
[2019-11-18 13:38] LABS: PLATELET ESTIMATE DECREASED
[2019-11-18 16:00] VITALS: BP 110/51
[2019-11-18 20:00] VITALS: BP 124/64
[2019-11-19 00:22] VITALS: BP 116/55
[2019-11-19] MEDS: ACETAMINOPHEN 325MG TABLET PO PRN ×4 (00:32→21:52)
[2019-11-19 05:37] LABS: HEMATOCRIT. 35.1 % (36.0-48.0); HEMOGLOBIN. 11.6 g/dL (12.0-16.0); MEAN CORPUSCULAR HEMOGLOBIN 31.7 pg (28.0-32.0); MEAN CORPUSCULAR VOLUME 95.6 fL (81.0-99.0); MEAN PLATELET VOLUME 9.2 fl (7.4-10.4); PLATELET 72 x1000/uL (130-400); RED BLOOD CELL COUNT 3.67 mill/uL (4.2-5.4); RED CELL DISTRIBUTION WIDTH 19.7 % (11.6-14.6)
[2019-11-19 05:43] LABS: CHLORIDE 108 mEq/L (98-107)
[2019-11-19 08:00] VITALS: BP 111/57
[2019-11-19] MEDS ORDERED: POTASSIUM CHLORIDE 20MEQ TABLET SR PO NR (09:15)
[2019-11-19] MEDS: FUROSEMIDE 40MG/4ML VIAL IV SCH ×2 (09:24→16:50)
[2019-11-19] MEDS: METOLAZONE 2.5MG TABLET PO SCH (09:25)
[2019-11-19 12:00] VITALS: BP 113/56
[2019-11-19 16:00] VITALS: BP 127/65
[2019-11-19 17:09] LABS: PLATELET ESTIMATE DECREASED
[2019-11-19 20:00] VITALS: BP 105/55
[2019-11-20] VITALS: BP 110/56
[2019-11-20] MEDS: TRAMADOL 50MG TABLET PO PRN ×2 (01:06→07:48)
[2019-11-20 04:00] VITALS: BP 103/47
[2019-11-20 06:35] LABS: HEMOGLOBIN. 12.1 g/dL (12.0-16.0); MEAN CORPUSCULAR VOLUME 95.2 fL (81.0-99.0); MEAN PLATELET VOLUME 9.4 fl (7.4-10.4); PLATELET 69 x1000/uL (130-400); RED BLOOD CELL COUNT 3.78 mill/uL (4.2-5.4)
[2019-11-20 06:37] LABS: CHLORIDE 105 mEq/L (98-107)
[2019-11-20 08:06] VITALS: BP 107/52
[2019-11-20] MEDS: ACETAMINOPHEN 325MG TABLET PO PRN (08:50)
[2019-11-20] MEDS ORDERED: ERGOCALCIFEROL 50000UNITS CAPSULE PO SCH (09:00)
[2019-11-20] MEDS: METOLAZONE 2.5MG TABLET PO SCH (09:54)
[2019-11-20] MEDS: POTASSIUM CHLORIDE 20MEQ/PACKET PO SCH (09:55)
[2019-11-20] MEDS: LIDOCAINE 5% PATCH TOP SCH (09:55)
[2019-11-20] MEDS: FUROSEMIDE 40MG/4ML VIAL IV SCH ×2 (09:55→16:32)
[2019-11-20 12:00] VITALS: BP 118/55
[2019-11-20] MEDS ORDERED: CARVEDILOL 3.125 MG TABLET PO NR (12:00)
[2019-11-20 12:01] LABS: PLATELET ESTIMATE DECREASED
[2019-11-20] MEDS ORDERED: POTASSIUM CHLORIDE 20MEQ/PACKET PO NR (12:15)
[2019-11-20 16:00] VITALS: BP 123/59
[2019-11-20] MEDS: SPIRONOLACTONE 25MG TABLET PO SCH (16:32)
[2019-11-20 20:00] VITALS: BP 105/57
[2019-11-20] MEDS: CARVEDILOL 3.125 MG TABLET PO SCH (21:00)
[2019-11-21] VITALS: BP 99/51
[2019-11-21] MEDS: ACETAMINOPHEN 325MG TABLET PO PRN (01:47)
[2019-11-21 04:00] VITALS: BP 106/57
[2019-11-21 06:32] LABS: HEMATOCRIT. 36.6 % (36.0-48.0); HEMOGLOBIN. 12.1 g/dL (12.0-16.0); MEAN CORPUSCULAR HEMOGLOBIN 31.6 pg (28.0-32.0); MEAN CORPUSCULAR VOLUME 95.9 fL (81.0-99.0); MEAN PLATELET VOLUME 9.2 fl (7.4-10.4); PLATELET 78 x1000/uL (130-400); RED BLOOD CELL COUNT 3.82 mill/uL (4.2-5.4); RED CELL DISTRIBUTION WIDTH 18.8 % (11.6-14.6)
[2019-11-21 07:22] LABS: CHLORIDE 101 mEq/L (98-107)
[2019-11-21] MEDS: LIDOCAINE 5% PATCH TOP SCH (08:11)
[2019-11-21] MEDS: FUROSEMIDE 40MG/4ML VIAL IV SCH (08:12)
[2019-11-21] MEDS: POTASSIUM CHLORIDE 20MEQ/PACKET PO SCH (08:12)
[2019-11-21] MEDS: SPIRONOLACTONE 25MG TABLET PO SCH (08:14)
[2019-11-21] MEDS: CARVEDILOL 3.125 MG TABLET PO SCH (08:14)
[2019-11-21 08:23] VITALS: BP 107/48
[2019-11-21] MEDS ORDERED: POTASSIUM CHLORIDE 20MEQ/PACKET PO NR (10:30)
[2019-11-21 11:21] LABS: PLATELET ESTIMATE DECREASED
[2019-11-21 12:00] VITALS: BP 111/85
[2019-11-21] MEDS ORDERED: TORS20TA4 MT (12:02)
[2019-11-21] MEDS ORDERED: SPIR25TA PO (12:02)
[2019-11-21 14:08] VITALS: BP 111/85
[2019-11-21 16:00] VITALS: BP 111/66
[2019-11-21] MEDS ORDERED: BUMETANIDE 1MG TABLET PO SCH (16:00)
[2019-11-24 06:08] LABS: 25-HYDROXY VITAMIN D3 6.6 ng/mL (.)
== END 2019-11-21 17:08 | DRG 291 ==
LOC: ER 15:37 → 7WST 18:20 → EDBEDREQTM 18:24 → EDBEDREQ 18:24 → ENRESERV 20:38
PROVIDERS: ADMIT Family Medicine Adult Medicine; ATTEND Family Medicine Adult Medicine
DX: I13.0 Hypertensive heart and chronic kidney disease with heart failure and stage 1 through stage 4 chronic kidney disease, or unspecified chronic kidney disease (principal); I50.23 Acute on chronic systolic (congestive) heart failure; G82.20 Paraplegia, unspecified; D61.818 Other pancytopenia; Z68.42 Body mass index [BMI] 45.0-49.9, adult; I87.2 Venous insufficiency (chronic) (peripheral); E87.6 Hypokalemia; E55.9 Vitamin D deficiency, unspecified; N18.9 Chronic kidney disease, unspecified; M48.061 Spinal stenosis, lumbar region without neurogenic claudication; M48.02 Spinal stenosis, cervical region; I25.5 Ischemic cardiomyopathy; I27.20 Pulmonary hypertension, unspecified; I34.0 Nonrheumatic mitral (valve) insufficiency; M79.604 Pain in right leg; M79.605 Pain in left leg; K80.20 Calculus of gallbladder without cholecystitis without obstruction; E07.89 Other specified disorders of thyroid; I25.10 Atherosclerotic heart disease of native coronary artery without angina pectoris; E66.01 Morbid (severe) obesity due to excess calories; J44.9 Chronic obstructive pulmonary disease, unspecified; E78.5 Hyperlipidemia, unspecified; I25.2 Old myocardial infarction; Z90.710 Acquired absence of both cervix and uterus; Z88.6 Allergy status to analgesic agent
CPT/HCPCS: 36415; 71045; 80053; 82306; 83735; 83880; 84484; 85025; 93005; 93306; 93970; 96374; 97110; 97116; 97162; 97166; 97530; 97535; 99285; J1940

== ENCOUNTER 2020-06-30 20:55 | Inpatient (IN) | payer MEDICARE, MEDICAID ==
[~2020-06-30] VITALS: Ht 165.1 cm; Wt 84.8 kg
[~2020-06-30 20:55] MED LIST changes: -FURO-151 MT; -METO2.5T14 PO; +SPIR25TA PO; +TORS20TA4 MT
[2020-06-30] MEDS ORDERED: ONDANSETRON HCL 4MG/2ML INJ IV STA (21:09)
[2020-06-30] MEDS ORDERED: SODIUM CHLORIDE 0.9% 1,000 ML IV ONE (21:15)
[2020-06-30] MEDS ORDERED: HALOPERIDOL LACTATE 5MG/ML VIAL IM ONE (22:00)
[2020-06-30 22:06] LABS: BASOPHILS % 0.3 % (0.0-2.0); EOSINOPHILS % 0.2 % (0.0-5.0); HEMATOCRIT. 39.6 % (36.0-48.0); HEMOGLOBIN. 12.9 g/dL (12.0-16.0); LYMPHOCYTES % 17.8 % (20.0-50.0); MEAN CORPUSCULAR HEMOGLOBIN 28.4 pg (28.0-32.0); MEAN CORPUSCULAR VOLUME 87.1 fL (81.0-99.0); MEAN PLATELET VOLUME 9.4 fl (7.4-10.4); MONOCYTES % 11.9 % (2.0-8.0); NEUTROPHILS % 69.8 % (40.0-76.0); PLATELET 93 x1000/uL (130-400); RED BLOOD CELL COUNT 4.55 mill/uL (4.2-5.4); RED CELL DISTRIBUTION WIDTH 17.8 % (11.6-14.6)
[2020-06-30 22:10] LABS: CLARITY URINE TURBID (CLEAR); COLOR URINE DARK YELLOW (YELLOW); KETONES URINE NEGATIVE (NEGATIVE); LEUKOCYTE ESTERASE URINE 3+ (NEGATIVE); NITRITE URINE POSITIVE (NEGATIVE); OCCULT BLOOD URINE 3+ (NEGATIVE); PH URINE 5.5 (4.5-8.0); PROTEIN URINE 1+ (NEGATIVE); SPECIFIC GRAVITY URINE 1.019 (1.005-1.030)
[2020-06-30 22:10] LABS: CHLORIDE 110 mEq/L (98-107)
[2020-06-30 22:15] LABS: ETHANOL BLOOD < 10 mg/dL
[2020-06-30 22:34] LABS: CREATINE KINASE 1377 IU/L (26-192)
[2020-06-30 22:39] LABS: *AMPHETAMINES SCREEN URINE NEGATIVE (NEGATIVE); *BARBITURATES SCREEN URINE NEGATIVE (NEGATIVE); *BENZODIAZEPINES SCREEN URINE NEGATIVE (NEGATIVE); *COCAINE SCREEN URINE NEGATIVE (NEGATIVE); METHADONE URINE SCREEN NEGATIVE (NEGATIVE); OPIATES URINE SCREEN NEGATIVE (NEGATIVE)
[2020-06-30 22:40] LABS: CANNABINOID URINE SCREEN NEGATIVE (NEGATIVE); PHENCYCLIDINE URINE SCREEN NEGATIVE (NEGATIVE)
[2020-06-30] MEDS ORDERED: LORAZEPAM 2MG/ML CPJ IV NR (22:45)
[2020-07-01] VITALS (10 sets, daily range): BP systolic 109–159; BP diastolic 50–97
[2020-07-01] MEDS ORDERED: CEFTRIAXONE 1 G PREMIX 50 ML IV ONE
[2020-07-01] MEDS ORDERED: ENOXAPARIN 80MG/0.8ML SYR SUBCUT ONE
[2020-07-01] MEDS ORDERED: SODIUM CHLORIDE 0.9% 500 ML IV NR (00:15)
[2020-07-01] MEDS ORDERED: CLONIDINE 0.1MG TABLET PO PRN (02:00)
[2020-07-01] MEDS ORDERED: DOCUSATE SODIUM 100MG CAPSULE PO PRN (02:00)
[2020-07-01] MEDS ORDERED: NITROGLYCERIN 0.4MG TABLET SL SL PRN (02:00)
[2020-07-01] MEDS ORDERED: ONDANSETRON HCL 4MG/2ML INJ IV PRN (02:00)
[2020-07-01] MEDS ORDERED: NA PHOS,M-B/NA PHOS,DI-BA ENEMA 118ML PR PRN (02:00)
[2020-07-01] MEDS ORDERED: MAGNESIUM/ALUMINUM HYDROXIDE/SIMETHICONE 30ML UDC PO PRN (02:00)
[2020-07-01] MEDS ORDERED: GUAIFENESIN 200MG/10ML SUGAR FREE UDC PO PRN (02:00)
[2020-07-01 02:44] LABS: INR 2.1; PARTIAL THROMBOPLASTIN TIME 34.3 sec (23.4-31.0); PROTHROMBIN TIME 21.3 sec (9.6-11.0)
[2020-07-01] MEDS ORDERED: LEVOFLOXACIN 500MG PREMIX 100 ML IV SCH (08:00)
[2020-07-01] MEDS: LISINOPRIL 10MG TABLET PO SCH (09:00)
[2020-07-01] MEDS ORDERED: ASPIRIN 81MG EC TABLET PO SCH (09:00)
[2020-07-01] MEDS: FUROSEMIDE 40MG/4ML VIAL IV SCH (09:07)
[2020-07-01] MEDS: LORAZEPAM 2MG/ML CPJ IM PRN (11:17)
[2020-07-01] MEDS ORDERED: ENOXAPARIN 100MG/ML SYR SUBCUT SCH (12:00)
[2020-07-01] MEDS: LACTULOSE 20G/30ML UDC PO SCH ×2 (14:06→22:55)
[2020-07-01] MEDS: ACETAMINOPHEN 325MG TABLET PO PRN (14:07)
[2020-07-02] VITALS (11 sets, daily range): BP systolic 107–151; BP diastolic 48–76
[2020-07-02] MEDS: LACTULOSE 20G/30ML UDC PO SCH ×3 (06:17→21:09)
[2020-07-02 06:37] LABS: HEMATOCRIT. 35.6 % (36.0-48.0); HEMOGLOBIN. 11.9 g/dL (12.0-16.0); MEAN CORPUSCULAR HEMOGLOBIN 28.9 pg (28.0-32.0); MEAN CORPUSCULAR VOLUME 86.9 fL (81.0-99.0); MEAN PLATELET VOLUME 9.7 fl (7.4-10.4); PLATELET 85 x1000/uL (130-400); RED BLOOD CELL COUNT 4.09 mill/uL (4.2-5.4); RED CELL DISTRIBUTION WIDTH 17.7 % (11.6-14.6)
[2020-07-02 07:06] LABS: CHLORIDE 114 mEq/L (98-107)
[2020-07-02 07:22] LABS: LDL CHOLESTEROL 49 mg/dL (5-100)
[2020-07-02 07:24] LABS: HDL CHOLESTEROL 20 mg/dL (40-59)
[2020-07-02] MEDS ORDERED: POTASSIUM CHLORIDE 20MEQ/PACKET PO ONE (08:45)
[2020-07-02] MEDS: NITROGLYCERIN OINT 1GM/INCH UDPKT TD SCH ×3 (09:15→21:10)
[2020-07-02] MEDS: FUROSEMIDE 40MG/4ML VIAL IV SCH (09:15)
[2020-07-02] MEDS: LISINOPRIL 10MG TABLET PO SCH (09:16)
[2020-07-02 11:14] LABS: VITAMIN B12 SERUM 1977 pg/mL (211-911)
[2020-07-02 13:25] LABS: PLATELET ESTIMATE DECREASED
[2020-07-02] MEDS: LEVOFLOXACIN 250MG PREMIX 50 ML IV SCH (19:05)
[2020-07-02] MEDS ORDERED: LEVOFLOXACIN 250MG PREMIX 50 ML IV SCH (21:00)
[2020-07-03] VITALS (11 sets, daily range): BP systolic 96–139; BP diastolic 50–77
[2020-07-03] MEDS: LACTULOSE 20G/30ML UDC PO SCH ×3 (06:04→20:32)
[2020-07-03] MEDS: NITROGLYCERIN OINT 1GM/INCH UDPKT TD SCH ×3 (06:05→20:33)
[2020-07-03 06:29] LABS: HEMATOCRIT. 34.6 % (36.0-48.0); HEMOGLOBIN. 11.5 g/dL (12.0-16.0); MEAN CORPUSCULAR HEMOGLOBIN 28.9 pg (28.0-32.0); MEAN PLATELET VOLUME 9.6 fl (7.4-10.4); PLATELET 73 x1000/uL (130-400); RED BLOOD CELL COUNT 3.98 mill/uL (4.2-5.4); RED CELL DISTRIBUTION WIDTH 17.7 % (11.6-14.6)
[2020-07-03 06:38] LABS: CHLORIDE 116 mEq/L (98-107)
[2020-07-03] MEDS: FUROSEMIDE 40MG/4ML VIAL IV SCH (08:52)
[2020-07-03] MEDS: LISINOPRIL 10MG TABLET PO SCH (08:53)
[2020-07-03] MEDS: LORAZEPAM 2MG/ML CPJ IM PRN ×2 (09:03→19:50)
[2020-07-03 13:12] LABS: PLATELET ESTIMATE DECREASED
[2020-07-03] MEDS: LEVOFLOXACIN 250MG PREMIX 50 ML IV SCH (20:32)
[2020-07-04] VITALS (13 sets, daily range): BP systolic 93–154; BP diastolic 54–94
[2020-07-04] MEDS: LORAZEPAM 2MG/ML CPJ IM PRN (01:30)
[2020-07-04] MEDS: LACTULOSE 20G/30ML UDC PO SCH ×3 (06:34→21:17)
[2020-07-04] MEDS: NITROGLYCERIN OINT 1GM/INCH UDPKT TD SCH ×3 (06:34→21:17)
[2020-07-04] MEDS: LISINOPRIL 10MG TABLET PO SCH (08:13)
[2020-07-04] MEDS: FUROSEMIDE 40MG/4ML VIAL IV SCH (08:26)
[2020-07-04] MEDS: LEVOFLOXACIN 250MG PREMIX 50 ML IV SCH (21:18)
[2020-07-05] VITALS (12 sets, daily range): BP systolic 90–172; BP diastolic 56–89
[2020-07-05] MEDS: NITROGLYCERIN OINT 1GM/INCH UDPKT TD SCH (06:25)
[2020-07-05] MEDS: LACTULOSE 20G/30ML UDC PO SCH ×3 (06:26→21:44)
[2020-07-05] MEDS: FUROSEMIDE 40MG/4ML VIAL IV SCH (08:54)
[2020-07-05] MEDS: LISINOPRIL 10MG TABLET PO SCH (09:00)
[2020-07-05] MEDS: CARVEDILOL 6.25 MG TABLET PO SCH ×2 (12:14→20:40)
[2020-07-05] MEDS: LEVOFLOXACIN 250MG PREMIX 50 ML IV SCH (20:38)
[2020-07-06] VITALS (13 sets, daily range): BP systolic 96–133; BP diastolic 43–82
[2020-07-06] MEDS: LACTULOSE 20G/30ML UDC PO SCH ×3 (06:39→21:29)
[2020-07-06 06:51] LABS: HEMATOCRIT. 38.3 % (36.0-48.0); HEMOGLOBIN. 12.5 g/dL (12.0-16.0); MEAN CORPUSCULAR VOLUME 88.8 fL (81.0-99.0); MEAN PLATELET VOLUME 9.4 fl (7.4-10.4); PLATELET 68 x1000/uL (130-400); RED BLOOD CELL COUNT 4.31 mill/uL (4.2-5.4); RED CELL DISTRIBUTION WIDTH 18.2 % (11.6-14.6)
[2020-07-06 07:04] LABS: CHLORIDE 113 mEq/L (98-107)
[2020-07-06] MEDS ORDERED: POTASSIUM CHLORIDE 20MEQ TABLET SR PO ONE (08:15)
[2020-07-06] MEDS: LISINOPRIL 10MG TABLET PO SCH (09:00)
[2020-07-06] MEDS: CARVEDILOL 6.25 MG TABLET PO SCH ×2 (09:00→21:29)
[2020-07-06] MEDS ORDERED: ASPIRIN 81MG TABLET PO SCH (09:00)
[2020-07-06] MEDS: FUROSEMIDE 40MG/4ML VIAL IV SCH (09:00)
[2020-07-06] MEDS: ACETAMINOPHEN 325MG TABLET PO PRN (09:01)
[2020-07-06] MEDS ORDERED: POTASSIUM CHLORIDE 20MEQ TABLET SR PO SCH (12:00)
[2020-07-06 12:49] LABS: PLATELET ESTIMATE DECREASED
[2020-07-06] MEDS ORDERED: POTASSIUM CHLORIDE 20MEQ/PACKET PO NR (21:00)
[2020-07-06] MEDS: LEVOFLOXACIN 250MG PREMIX 50 ML IV SCH (22:17)
[2020-07-07] VITALS (12 sets, daily range): BP systolic 90–126; BP diastolic 43–90
[2020-07-07] MEDS: LACTULOSE 20G/30ML UDC PO SCH ×3 (05:45→17:00)
[2020-07-07 07:06] LABS: BASOPHILS % 0.7 % (0.0-2.0); HEMATOCRIT. 35.7 % (36.0-48.0); LYMPHOCYTES % 37.2 % (20.0-50.0); MEAN CORPUSCULAR HEMOGLOBIN 29.5 pg (28.0-32.0); MEAN PLATELET VOLUME 9.8 fl (7.4-10.4); MONOCYTES % 14.4 % (2.0-8.0); NEUTROPHILS % 40.7 % (40.0-76.0); PLATELET 61 x1000/uL (130-400); RED BLOOD CELL COUNT 4.05 mill/uL (4.2-5.4); RED CELL DISTRIBUTION WIDTH 18.3 % (11.6-14.6)
[2020-07-07 07:24] LABS: CHLORIDE 109 mEq/L (98-107)
[2020-07-07] MEDS ORDERED: POTASSIUM CHLORIDE 20MEQ/PACKET PO SCH (08:00)
[2020-07-07] MEDS: LISINOPRIL 10MG TABLET PO SCH ×2 (08:40→14:30)
[2020-07-07] MEDS: CARVEDILOL 6.25 MG TABLET PO SCH ×2 (08:40→21:00)
[2020-07-07] MEDS: FUROSEMIDE 40MG/4ML VIAL IV SCH (09:45)
[2020-07-07] MEDS ORDERED: POTASSIUM CHLORIDE 20MEQ TABLET SR PO SCH (11:00)
[2020-07-07] MEDS: POTASSIUM CHLORIDE 20MEQ TABLET SR PO SCH (13:48)
[2020-07-08] VITALS (12 sets, daily range): BP systolic 79–135; BP diastolic 31–84
[2020-07-08] MEDS: LACTULOSE 20G/30ML UDC PO SCH ×2 (05:00→17:43)
[2020-07-08 06:19] LABS: CHLORIDE 110 mEq/L (98-107)
[2020-07-08] MEDS: CARVEDILOL 6.25 MG TABLET PO SCH ×2 (09:00→20:26)
[2020-07-08] MEDS: LISINOPRIL 10MG TABLET PO SCH (09:00)
[2020-07-08] MEDS: FUROSEMIDE 40MG/4ML VIAL IV SCH (09:48)
[2020-07-08] MEDS: POTASSIUM CHLORIDE 20MEQ TABLET SR PO SCH (09:48)
[2020-07-08] MEDS: ACETAMINOPHEN 325MG TABLET PO PRN (13:36)
[2020-07-08] MEDS ORDERED: RIFAXIMIN 200MG TABLET PO SCH (21:00)
== END 2020-07-08 21:20 | DRG 871 ==
LOC: ER 20:55 → ENRESERV 07-01 02:02 → 5EST 07-01 03:07
PROVIDERS: ADMIT Family Medicine Adult Medicine; ATTEND Family Medicine Adult Medicine
PROC: 4A00X4Z Measurement of Central Nervous Electrical Activity, External Approach (ICD-10-PCS; principal; 2020-07-01)
DX: A41.51 Sepsis due to Escherichia coli [E. coli] (principal); I21.4 Non-ST elevation (NSTEMI) myocardial infarction; G93.41 Metabolic encephalopathy; E43 Unspecified severe protein-calorie malnutrition; I50.21 Acute systolic (congestive) heart failure; E72.20 Disorder of urea cycle metabolism, unspecified; N39.0 Urinary tract infection, site not specified; E87.2 Acidosis; G82.20 Paraplegia, unspecified; D61.818 Other pancytopenia; D68.9 Coagulation defect, unspecified; E87.0 Hyperosmolality and hypernatremia; E44.0 Moderate protein-calorie malnutrition; E03.9 Hypothyroidism, unspecified; E87.6 Hypokalemia; I11.0 Hypertensive heart disease with heart failure; I49.3 Ventricular premature depolarization; I49.1 Atrial premature depolarization; J44.9 Chronic obstructive pulmonary disease, unspecified; I25.10 Atherosclerotic heart disease of native coronary artery without angina pectoris; E78.5 Hyperlipidemia, unspecified; K72.90 Hepatic failure, unspecified without coma; F03.90 Unspecified dementia, unspecified severity, without behavioral disturbance, psychotic disturbance, mood disturbance, and anxiety; I27.20 Pulmonary hypertension, unspecified; D69.6 Thrombocytopenia, unspecified; I45.10 Unspecified right bundle-branch block; I25.5 Ischemic cardiomyopathy; K82.9 Disease of gallbladder, unspecified; R13.10 Dysphagia, unspecified; E66.01 Morbid (severe) obesity due to excess calories; I44.0 Atrioventricular block, first degree; Z20.828 Contact with and (suspected) exposure to other viral communicable diseases; E87.8 Other disorders of electrolyte and fluid balance, not elsewhere classified; I25.2 Old myocardial infarction; Z88.8 Allergy status to other drugs, medicaments and biological substances; Z79.1 Long term (current) use of non-steroidal anti-inflammatories (NSAID); Z79.899 Other long term (current) drug therapy; Z68.31 Body mass index [BMI] 31.0-31.9, adult; Z90.710 Acquired absence of both cervix and uterus; Z88.6 Allergy status to analgesic agent; Z78.1 Physical restraint status
CPT/HCPCS: 36415; 70551; 71045; 72170; 80048; 80053; 80061; 80076; 80305; 80307; 80320; 80329; 81003; 82140; 82248; 82550; 82607; 82962; 83605; 83735; 83880; 84443; 84484; 85025; 87077; 87186; 87635; 92610; 93005; 93306; 93970; 95816; 97116; 97162; 97166; 97530; 97535; 99291; A6261; J0696; J1630; J1650; J1940; J1956; J2060; J2405; J7030; J7040; A4315; G0480

== ENCOUNTER 2020-07-08 21:30 | Inpatient (IN) | payer MEDICARE, MEDICAID ==
[~2020-07-08] VITALS: Ht 165.1 cm; Wt 83.5 kg
[2020-07-08 21:45] VITALS: BP 95/43
[2020-07-08 22:00] VITALS: BP 95/43
[2020-07-08] MEDS ORDERED: DOCUSATE SODIUM 100MG CAPSULE PO PRN (22:00)
[2020-07-08] MEDS ORDERED: NA PHOS,M-B/NA PHOS,DI-BA ENEMA 118ML PR PRN (22:00)
[2020-07-08] MEDS ORDERED: NITROGLYCERIN 0.4MG TABLET SL SL PRN (22:00)
[2020-07-08] MEDS ORDERED: MAGNESIUM/ALUMINUM HYDROXIDE/SIMETHICONE 30ML UDC PO PRN (22:00)
[2020-07-08] MEDS ORDERED: GUAIFENESIN 200MG/10ML SUGAR FREE UDC PO PRN (22:00)
[2020-07-08] MEDS ORDERED: ONDANSETRON HCL 4MG/2ML INJ IV PRN (22:00)
[2020-07-09] MEDS ORDERED: LACTULOSE 20G/30ML UDC PO SCH (05:00)
[2020-07-09] MEDS: ACETAMINOPHEN 325MG TABLET PO PRN (05:12)
[2020-07-09 08:13] VITALS: BP 99/49
[2020-07-09] MEDS: POTASSIUM CHLORIDE 20MEQ TABLET SR PO SCH (08:35)
[2020-07-09] MEDS: RIFAXIMIN 200MG TABLET PO SCH ×2 (08:36→22:08)
[2020-07-09] MEDS ORDERED: CARVEDILOL 3.125 MG TABLET PO SCH (09:00)
[2020-07-09] MEDS ORDERED: FUROSEMIDE 40MG/4ML VIAL IVP SCH (09:00)
[2020-07-09] MEDS ORDERED: CARVEDILOL 6.25 MG TABLET PO SCH (09:00)
[2020-07-09 09:21] LABS: CHLORIDE 107 mEq/L (98-107)
[2020-07-09 20:00] VITALS: BP 107/67
[2020-07-09] MEDS: CARVEDILOL 3.125 MG TABLET PO SCH (22:10)
[2020-07-10 06:21] LABS: CHLORIDE 107 mEq/L (98-107)
[2020-07-10 07:48] VITALS: BP 106/51
[2020-07-10] MEDS: RIFAXIMIN 200MG TABLET PO SCH ×2 (08:34→20:04)
[2020-07-10] MEDS: POTASSIUM CHLORIDE 20MEQ TABLET SR PO SCH (08:35)
[2020-07-10] MEDS: FUROSEMIDE 40MG TABLET PO SCH (08:36)
[2020-07-10] MEDS: LACTULOSE 20G/30ML UDC PO SCH (08:40)
[2020-07-10] MEDS: CARVEDILOL 3.125 MG TABLET PO SCH ×2 (08:47→20:04)
[2020-07-10 12:17] VITALS: BP 111/53
[2020-07-10 15:43] VITALS: BP 106/52
[2020-07-10 20:00] VITALS: BP 98/45
[2020-07-11] MEDS: ACETAMINOPHEN 325MG TABLET PO PRN (06:38)
[2020-07-11 07:58] VITALS: BP 90/39
[2020-07-11] MEDS: FUROSEMIDE 40MG TABLET PO SCH (08:17)
[2020-07-11] MEDS: RIFAXIMIN 200MG TABLET PO SCH ×2 (08:17→21:16)
[2020-07-11] MEDS: POTASSIUM CHLORIDE 20MEQ TABLET SR PO SCH (08:17)
[2020-07-11] MEDS: LACTULOSE 20G/30ML UDC PO SCH (08:17)
[2020-07-11] MEDS: CARVEDILOL 3.125 MG TABLET PO SCH ×2 (08:23→21:16)
[2020-07-11 20:00] VITALS: BP 122/53
[2020-07-12 06:48] LABS: HEMATOCRIT. 34.2 % (36.0-48.0); HEMOGLOBIN. 11.3 g/dL (12.0-16.0); MEAN CORPUSCULAR HEMOGLOBIN 29.6 pg (28.0-32.0); MEAN CORPUSCULAR VOLUME 89.6 fL (81.0-99.0); MEAN PLATELET VOLUME 10.3 fl (7.4-10.4); PLATELET 56 x1000/uL (130-400); RED BLOOD CELL COUNT 3.82 mill/uL (4.2-5.4); RED CELL DISTRIBUTION WIDTH 20.2 % (11.6-14.6)
[2020-07-12 07:02] LABS: CHLORIDE 110 mEq/L (98-107)
[2020-07-12 07:08] VITALS: BP 103/33
[2020-07-12] MEDS: CARVEDILOL 3.125 MG TABLET PO SCH ×2 (07:59→22:36)
[2020-07-12] MEDS: POTASSIUM CHLORIDE 20MEQ TABLET SR PO SCH (08:00)
[2020-07-12] MEDS: LACTULOSE 20G/30ML UDC PO SCH (08:00)
[2020-07-12] MEDS: FUROSEMIDE 40MG TABLET PO SCH (08:00)
[2020-07-12] MEDS: RIFAXIMIN 200MG TABLET PO SCH ×2 (08:00→22:34)
[2020-07-12 12:05] LABS: PLATELET ESTIMATE DECREASED
[2020-07-12 20:00] VITALS: BP 106/54
[2020-07-13 08:07] VITALS: BP 100/42
[2020-07-13] MEDS: FUROSEMIDE 40MG TABLET PO SCH (09:00)
[2020-07-13] MEDS: CARVEDILOL 3.125 MG TABLET PO SCH ×2 (09:00→22:00)
[2020-07-13] MEDS: POTASSIUM CHLORIDE 20MEQ TABLET SR PO SCH (09:42)
[2020-07-13] MEDS: RIFAXIMIN 200MG TABLET PO SCH ×2 (09:43→21:59)
[2020-07-13] MEDS: LACTULOSE 20G/30ML UDC PO SCH (10:06)
[2020-07-13 11:31] LABS: CHLORIDE 110 mEq/L (98-107)
[2020-07-13 20:00] VITALS: BP 140/60
[2020-07-14 08:00] VITALS: BP 107/54
[2020-07-14 08:04] LABS: CHLORIDE 113 mEq/L (98-107)
[2020-07-14] MEDS: FUROSEMIDE 40MG TABLET PO SCH (09:00)
[2020-07-14] MEDS: CARVEDILOL 3.125 MG TABLET PO SCH ×2 (09:00→21:00)
[2020-07-14] MEDS: LACTULOSE 20G/30ML UDC PO SCH (09:33)
[2020-07-14 20:00] VITALS: BP 118/54
[2020-07-15 06:03] LABS: CHLORIDE 111 mEq/L (98-107)
[2020-07-15 08:00] VITALS: BP 117/62
[2020-07-15] MEDS: LACTULOSE 20G/30ML UDC PO SCH (08:38)
[2020-07-15] MEDS: FUROSEMIDE 40MG TABLET PO SCH (08:39)
[2020-07-15] MEDS: CARVEDILOL 3.125 MG TABLET PO SCH ×2 (08:39→20:07)
[2020-07-15] MEDS ORDERED: FURO40TA5 PO (11:50)
[2020-07-15] MEDS ORDERED: LACT10SO7 PO (11:50)
[2020-07-15 20:00] VITALS: BP 101/53
[2020-07-16 06:59] LABS: CHLORIDE 112 mEq/L (98-107)
[2020-07-16 07:44] VITALS: BP 113/45
[2020-07-16] MEDS: CARVEDILOL 3.125 MG TABLET PO SCH (08:25)
[2020-07-16] MEDS: FUROSEMIDE 40MG TABLET PO SCH (08:25)
[2020-07-16] MEDS: LACTULOSE 20G/30ML UDC PO SCH (08:27)
[2020-07-16 11:55] VITALS: BP 113/45
[2020-07-16] MEDS ORDERED: LACT10SO7 MT (13:18)
[2020-07-16] MEDS ORDERED: FURO-151 MT (13:18)
== END 2020-07-16 16:20 | disposition home health service (06) | DRG 70 ==
PROVIDERS: ADMIT Psychiatry & Neurology Neurology; ATTEND Family Medicine Adult Medicine
DX: G93.41 Metabolic encephalopathy (principal); A41.51 Sepsis due to Escherichia coli [E. coli]; E43 Unspecified severe protein-calorie malnutrition; I50.43 Acute on chronic combined systolic (congestive) and diastolic (congestive) heart failure; I21.4 Non-ST elevation (NSTEMI) myocardial infarction; N39.0 Urinary tract infection, site not specified; D68.9 Coagulation defect, unspecified; D61.818 Other pancytopenia; E72.20 Disorder of urea cycle metabolism, unspecified; E87.1 Hypo-osmolality and hyponatremia; M62.82 Rhabdomyolysis; I47.2 Ventricular tachycardia; E66.01 Morbid (severe) obesity due to excess calories; I11.0 Hypertensive heart disease with heart failure; F03.90 Unspecified dementia, unspecified severity, without behavioral disturbance, psychotic disturbance, mood disturbance, and anxiety; E87.5 Hyperkalemia; E87.6 Hypokalemia; I25.5 Ischemic cardiomyopathy; E03.9 Hypothyroidism, unspecified; I25.10 Atherosclerotic heart disease of native coronary artery without angina pectoris; I44.0 Atrioventricular block, first degree; I45.10 Unspecified right bundle-branch block; K72.90 Hepatic failure, unspecified without coma; I25.2 Old myocardial infarction; Z68.30 Body mass index [BMI] 30.0-30.9, adult
CPT/HCPCS: 36415; 74018; 80048; 80076; 82140; 82248; 85025; 92523; 92610; 93005; 97110; 97112; 97116; 97162; 97166; 97530; 97535; J1940